=== PATIENT | male | born 1930 | race Caucasian/White ===

== ENCOUNTER → 2016-06-16 | Outpatient (CLI) | payer MEDICARE ==
[~2016-06-16] MED LIST: ACETIC ACID IR; AMOXIL500 MG PO; AMPICILLIN500 M1 PO; AQUAPHOR HEALING41% TP; ASPIR-TRIN325 MG PO; ATIVAN0.5 MG PO; BRIN10TA PO; CARAFATE1 G1 PO; CELEXA10 MG PO; CELEXA20 MG PO; CIPRO500 MG PO; COLACE100 MG PO; COUMADIN7.5 M1 PO; CYTOTEC100 MCG PO; Carafate1 GM PO; DOK COLACE100 MG PO; DRISDOL50000 IU PO; DULCOLAX PO; EXEL13.31 T; Exelon T; FEROSUL325 MG PO; FLOMAX0.4 MG PO; FOLGARD TABLET1 EACH PO; FOLIC ACID1 MG PO; HALDOL IM; HALOPERIDOL IM; INVEGA SUSTENN156 MG IM; INVEGA SUSTENN234 MG IM; KLONOPIN0.5 MG PO; Lovenox60 MG/0.6 PO; MEGACE 40400 MG/10 PO; METOCLOPRAMIDE5 MG PO; MIRALAX17 GM/DOSE; MIRALAX17 GM/DOSE PO; MIRTAZAPINE15 M2 PO; MIRTAZAPINE15 MG PO; NAMENDA-14 PO; NAMENDA-28 PO; NATURE'S BLEND400 IU PO; NEXIUM20 MG PO; NEXIUM40 MG PO; NORCO 5-325 TA1 EACH PO; NYSTATIN CREAM15 GM PO; PANTOPRAZOLE SO40 MG PO; PERCOCET 325 MG1 TA2 PO; PREVACID30 MG PO; PRILOSEC10 MG PO; PRILOSEC20 M1 PO; PRILOSEC20 MG PO; PROTONIX40 MG PO; PROVERA10 MG PO; REGLAN5 MG PO; REMERON15 M2 PO; REMERON15 MG PO; REMERON30 MG PO; RESTORIL15 MG PO; RISPERIDONE M-TA1 MG BC; RISPERIDONE M-TA1 MG PO; SENOKOT1 TAB PO; SENSI-CARE PROT1 OI1 TP; SEROQUEL200 MG PO; SEROQUEL300 MG PO; THERA M PLUS T1 EACH PO; TYLENOL325 M2 PO; VITAMIN D50000 I3 PO; VITAMIN E400 I1 PO; VITAMIN E400 IU PO; VOLTAREN50 MG PO; ZYPREXA ZYDIS10 MG BC; ZYPREXA10 M1 PO; ZYPREXA10 MG PO; ZYPREXA15 MG PO; [UNRECOGNIZED DRUG - MIXTURE] T
[2016-06-16 12:50] VITALS: BP 145/65
[2016-06-16 13:50] VITALS: BP 170/79
[2016-06-16 14:53] VITALS: BP 183/91
[2016-06-16 16:00] VITALS: BP 151/62
[2016-06-16 17:00] VITALS: BP 153/69
[2016-06-16 18:00] VITALS: BP 150/68
== END | disposition home or self-care (01) ==
LOC: TRNFUSION 09:31
DX: D64.9 Anemia, unspecified (principal)

== ENCOUNTER 2016-08-31 06:38 | Emergency (ER) | payer MEDICARE ==
[~2016-08-31] VITALS: Ht 15544 cm; Wt 81.6 kg
[2016-08-31 08:03] VITALS: BP 165/75
[2016-08-31 09:18] LABS: BASO % 0.3 % (0.0-1.0); EOS # 0.2 10*3/uL (0.0-0.4); EOS % 2.6 % (1.0-4.0); HEMATOCRIT 38.6 % (42.0-52.0); HEMOGLOBIN 11.9 g/dl (14.0-18.0); IG # 0.1 10*3/uL (0.0-0.1); LYMPH # 1.4 10*3/uL (1.3-4.4); LYMPH % 22.3 % (27.0-41.0); MEAN CELL VOLUME 79.4 fl (80.0-94.0); MEAN CORPUSCULAR HGB 24.5 pg (27.0-31.0); MEAN CORPUSCULAR HGB CONC 30.8 g/dl (33.0-37.0); MEAN PLATELET VOLUME 9.2 fl (9.6-12.3); MONO # 0.5 10*3/uL (0.1-1.0); MONO % 8.2 % (3.0-9.0); NEUT % 65.8 % (47.0-73.0); PLATELET COUNT AUTOMATED 253 10*3/uL (130-400); RED BLOOD COUNT 4.86 10*6/uL (4.50-5.90); RED CELL DISTRI WIDTH 22.3 % (0-14.5); WHITE BLOOD COUNT 6.1 10*3/uL (4.8-10.8)
[2016-08-31 09:33] LABS: ALBUMIN 3.1 gm/dl (3.1-4.5); ALKALINE PHOSPHATASE 117 U/L (45-117); BILIRUBIN, TOTAL 0.7 mg/dl (0.2-1.0); BUN 18 mg/dl (7-24); C-REACTIVE PROTEIN 1.35 MG/DL (0-0.3); CARBON DIOXIDE 28 mmol/L (21-32); CHLORIDE 103 mmol/L (98-107); EST GLOM FILT AFRICAN AMERICAN > 60 ml/min; GLUCOSE 88 mg/dL (65-99); MAGNESIUM 2.3 mg/dL (1.5-2.1); SGOT/AST 17 IU/L (3-35); SGPT/ALT 17 U/L (12-78); SODIUM 137 mmol/L (136-145); TOTAL PROTEIN 7.2 gm/dL (6.4-8.2)
[2016-08-31 09:43] LABS: BILIRUBIN NEGATIVE (NEGATIVE); BLOOD 3+ (NEGATIVE); CLARITY CLOUDY (CLEAR); COLOR RED (YELLOW); GLUCOSE NEGATIVE (NEGATIVE); KETONE NEGATIVE (NEGATIVE); LEUKO ESTERASE 3+ (NEGATIVE); NITRITE NEGATIVE (NEGATIVE); PH 6.5 (5.0-9.0); PROTEIN TRACE (NEGATIVE)
[2016-08-31 09:56] LABS: BACTERIA 4+; RBC TNTC rbc/hpf (0-2); URINE REFLEX COMMENT YES (NO)
[2016-08-31 09:57] LABS: WBC 21-30 wbc/hpf (0-5)
[2016-08-31] MEDS ORDERED: BACTRIM DS 8001 TAB PO (10:14)
== END 2016-08-31 10:53 ==
LOC: ED 06:38
PROVIDERS: Emergency Medicine
DX: S00.83XA Contusion of other part of head, initial encounter (principal); L03.116 Cellulitis of left lower limb; F43.10 Post-traumatic stress disorder, unspecified; Z86.73 Personal history of transient ischemic attack (TIA), and cerebral infarction without residual deficits; W18.30XA Fall on same level, unspecified, initial encounter; Y93.89 Activity, other specified; Y92.9 Unspecified place or not applicable; Y99.9 Unspecified external cause status